=== PATIENT | female | born 1985 | race Caucasian/White ===

== ENCOUNTER 2017-01-10 19:05 | Emergency (ER) | payer OTHER ==
[2017-01-10 19:11] VITALS: BP 112/66; BMI 26.9
[2017-01-10 20:59] VITALS: PULSE 68; TEMP 98.6
[2017-01-10 21:29] LABS: URINE APPEARANCE CLEAR; URINE BILIRUBIN NEGATIVE (NEGATIVE); URINE BLOOD NEGATIVE (NEGATIVE); URINE COLOR RED; URINE GLUCOSE (UA) NEGATIVE (NEGATIVE); URINE KETONE NEGATIVE (NEGATIVE); URINE LEUK ESTERASE NEGATIVE (NEGATIVE); URINE NITRITE NEGATIVE (NEGATIVE); URINE PROTEIN NEGATIVE (NEGATIVE); URINE UROBILINOGEN NEGATIVE E.U./dl (0.2-1.0)
== END 2017-01-10 21:50 | disposition home or self-care (01) ==
LOC: JER 19:05
DX: O26.893 Other specified pregnancy related conditions, third trimester (principal); R10.30 Lower abdominal pain, unspecified; Z3A.31 31 weeks gestation of pregnancy
CPT/HCPCS: 81003; 87086; 99281-25

== ENCOUNTER 2017-03-20 17:10 | Inpatient (IN) | payer OTHER ==
[2017-03-20 18:23] VITALS: BMI 30.1
[2017-03-20] MEDS ORDERED: BUTORPHANOL TARTRATE 1 MG/ML VIAL IVPB ONE (18:39)
[2017-03-20] MEDS ORDERED: PROMETHAZINE HCL 25 MG/1 ML VIAL IVPUSH ONE (18:39)
[2017-03-20] MEDS ORDERED: SODIUM PHOSPHATE/NA BIPHOS 133 ML ENEMA PR ONE (18:42)
[2017-03-20] MEDS ORDERED: DINOPROSTONE 10 MG VAGINAL SUPPOSITORY VG ONE (18:43)
[2017-03-20] MEDS ORDERED: DEXTROSE 5%-LACTATED RINGERS 1,000 ML IV SCH (18:45)
--- NOTE | 2017-03-20 18:49 | HP ---
Past Medical History - Primary Care Physician PCP:: Yuki Khalil - Admission Chief Complaint: 32 yrs , h/f , 03/12/17 edc by dates & sono by M 41.4/7 weeks postterm pregn requests for induction of labor . History of Present Illness: PNC at , [facility] ., wt gain 25 lbs work Up O pos, Rpr nr, Hbsag neg, Rubella pos, Quantiferon neg, , Hiv neg,! hr GTT 103,Quantiferon neg, , Sickle neg, Pap 10/19/16 NILM, gc/ct neg Gbs neg ., consult with VICKIE Quad screen neg, 12/23/16 sono 28.4/7 weeks GA by sono & dates compatible, The Best EDC assigned by [facility] was 03/12/17 f/u sono on 01/22/17 , 32.4/7 weeks .vx post placenta f/u sono 03/16/17 40.4/7 weeks,Vx, EFW 86%tile (3863 gm = 8'8" ) XIN 12.09, Bpp8/ 8 She was monitored by NST in the clinic for post term Pt has signed BTL papers Ante History Source: Patient, Medical Record Limitations to Obtaining History: No Limitations - Past Medical History HOIST MECHANIC: No: Migraine, Seizure Cardiovascular: No: HTN, Murmur Pulmonary: No: Asthma, COPD Gastrointestinal: No: Constipation, Gastritis Hepatobiliary: No: Hepatitis B Renal/: No: UTI ...: 5 ...Para: 3 ...Term: 2 ...: 1 ...LMP: 06/05/16 ... Weeks Gestation by Dates: 41.4 ...EDC by Dates: 03/12/17 ...EDC by Sono: 03/12/17 (41.4 weeks ) Additional OB History: G1 08/18/2005 30 weeks 2'14" [facility] G2 2007 sp ab 1st trimester. G3 07/17/2009 40 weeks 6'10" [facility]. G4 11/28/2013 40 weeksNSVD 7' 9"[facility] Heme/Onc: No: Anemia, Sickle Cell Trait Infectious Disease: No: AIDS, HIV, STD's, Tuberculosis Psych: No: Addictions, Anxiety, Bipolar, Depression Endocrine: No: Diabetes Mellitus, Hypothyroidism - Past Surgical History Past Surgical History: Yes: None Hx Myomectomy: No Hx Transabdominal Cerclage: No - Smoking History Smoking history: Never smoked Have you smoked in the past 12 months: No - Alcohol/Substance Use Hx Alcohol Use: No History of Substance Use: reports: None - Social History History of Recent Travel: No Home Medications - Allergies Allergies/Adverse Reactions: Allergies Allergy/AdvReac Type Severity Reaction Status Date / Time No Known Allergies Allergy Verified 01/10/17 19:10 - Home Medications Home Medications: Ambulatory Orders Vitamins (Sjr) - 1 tab PO DAILY 11/24/13 Physical Exam - Maternity Vital Signs: Vital Signs Temperature 97.6 F 03/20/17 17:45 Pulse Rate 77 03/20/17 17:45 Respiratory Rate 18 03/20/17 17:45 Blood Pressure 106/64 03/20/17 17:45 O2 Sat by Pulse Oximetry (%) Constitutional: Yes: Well Nourished Eyes: Yes: WNL HENT: Yes: WNL, Normocephalic Neck: Yes: WNL Cardiovascular: Yes: WNL, Regular Rate and Rhythm Lungs: Clear to auscultation Breast(s): Yes: WNL - Abdominal Exam/OB Fundal Height: 40 Number of Fetuses: Single Presentation: Vertex Regularity: Irregular Intensity: Unaware Monitor Mode: External Heart Rate (range): 140-150 Heart Rate Location: [facility] Category: I Accelerations: Uniform Decelerations: None - Vaginal Exam/OB Vaginal Bleediing: No Dilatation (cm): FT Effacement (%): 40 Amniotic Membrane Status: Intact Presentation: Vertex/Position Station: -3 (-3/-4) - Physical Exam Musculoskeletal: Yes: WNL Extremities: Yes: WNL Edema: Yes Edema: LLE: Trace, RLE: Trace Integumentary: Yes: WNL Deep Tendon Reflex Grade: Normal +2 ...Motor Strength: WNL Psychiatric: Yes: WNL, Alert, Oriented - Labs Lab Results: Laboratory Tests 03/20/17 03/20/17 03/20/17 18:45 18:45 18:45 WBC 10.0 RBC 3.89 Hgb 12.1 Hct 34.2 MCV 88.0 Plt Count 170 Neutrophils % 71.0 Lymphocytes % 19.7 Monocytes % 7.2 Eosinophils % 1.7 INR 1.03 PTT (Actin FS) 27.8 Sodium 138 Potassium 4.2 Chloride 104 Carbon Dioxide 26 BUN 9 Creatinine 0.7 Random Glucose 81 Calcium 8.2 L Blood Type Antibody Screen 03/20/17 18:45 WBC RBC Hgb Hct MCV Plt Count Neutrophils % Lymphocytes % Monocytes % Eosinophils % INR PTT (Actin FS) Sodium Potassium Chloride Carbon Dioxide BUN Creatinine Random Glucose Calcium Blood Type O POSITIVE Antibody Screen Negative Problem List - Problems (1) Post term at 41 weeks gestation Code(s): O48.0 - POST-TERM Z3A.41 - 41 WEEKS GESTATION OF (2) Elective induction of labor planned Code(s): JGA5277 - Assessment/Plan 32 yrs G5 P 2113 , 41 weeks iup , post term pregn by dates & sono requests for induction of labor GBS neg pt was explained in details r/b/aof expectant management ( wait for spontaneous onset LP until another 4-5 days, monitor alt day by NST & BPP again at 42 weeks ( risk of cord accident , abruptio ), versus Induction of labor with cervidil today ,possbility of c/section due to unfavorable cervix notified Pt prefers to be induced Plan cervidil insertion done at 7.15 PM trial vaginal delivery
[2017-03-20 19:15] LABS: BASOPHIL 0.4 % (0-2.0); EOSINOPHIL 1.7 % (0-4.5); MCHC 35.3 g/dl (32.0-36.0); MEAN PLT VOLUME 9.4 fl (7.5-11.1); PLATELET COUNT 170 K/MM3 (134-434); RDW 14.1 % (11.6-15.6)
[2017-03-20 19:35] LABS: ANION GAP 8 (8-16); CALCIUM 8.2 mg/dL (8.5-10.1); CO2 26 mmol/L (21-32); CREATININE 0.7 mg/dL (0.55-1.02); GLUCOSE,RANDOM 81 mg/dL (74-106)
[2017-03-20 19:40] LABS: INR 1.03 (0.82-1.09); PROTHROMBIN TIME (PATIENT) 11.3 SEC (9.98-11.88)
[2017-03-20 19:43] LABS: ACTIVATED PTT 27.8 SECONDS (26.9-34.4)
--- NOTE | 2017-03-21 02:22 | PN ---
Progress Note, Labor Vaginal Exam #1 Labor Exam Date: 03/21/17 Labor Exam Time: 01:00 Heart Rate (range): 140 Dilatation: 6 Effacement (%): 100 Amniotic Membrane Status: Intact Presentation: Vertex/Position Station: -3 Remarks: uc q 2 min , FHR cat-1 1.10 am stadol 2 mg + phenrgan 25 mg iv stat given Selected Entries 03/21/17 00:00 Temperature 98.3 F Pulse Rate 63 Blood Pressure 123/79 Vaginal Exam #2 Labor Exam Date: 03/21/17 Labor Exam Time: 01:40 Heart Rate (range): 140 Dilatation: 8 Effacement (%): 100 Amniotic Membrane Status: Ruptured (copious amount clear fluid .) Presentation: Vertex/Position Station: -2 Remarks: 1.35 AM excessive blood show with blood clot noted , cervidil expelled spontaneously variable to 100 cat-2 , position changed 1.40 Hr Fhr cat-1 150 1.48 Hr recurrent variable decel FHr cat-2 1. Vaginal Exam #3 Labor Exam Date: 03/21/17 Labor Exam Time: 02:35 Heart Rate (range): 160 Dilatation: 10 Effacement (%): 100 Amniotic Membrane Status: Ruptured Presentation: Vertex/Position Station: 0 (0/+!) Remarks: fhr cat-2 UC 2 min pt has urge to push , encouraged to push
[2017-03-21] MEDS ORDERED: BENZOCAINE 20% 57 GM BOTTLE TP PRN (03:10)
[2017-03-21] MEDS ORDERED: IBUPROFEN 600 MG TABLET (FP) PO PRN (03:10)
[2017-03-21] MEDS ORDERED: WITCH HAZEL 50% (TUCKS) 40 PAD/JAR PAD TP PRN (03:10)
[2017-03-21] MEDS ORDERED: ACETAMINOPHEN 325 MG TABLET (FP) PO PRN (03:10)
[2017-03-21] MEDS ORDERED: BISACODYL 10 MG SUPP.RECT RC PRN (03:10)
[2017-03-21] MEDS ORDERED: oxyCODONE HCL 5 MG TABLET PO PRN (03:10)
[2017-03-21] MEDS ORDERED: BENZOCAINE 28 GM HEMORRHOIDAL OINTMENT TP PRN (03:10)
[2017-03-21] MEDS ORDERED: METHYLERGONOVINE MALEATE 0.2 MG/1 ML AMP IM PRN (03:10)
[2017-03-21] MEDS ORDERED: D5W-LR W/ 20 UNITS OXYTOCIN 1,000 ML IV SCH (03:15)
--- NOTE | 2017-03-21 03:24 | PN ---
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 Gbs neg PNC at [address] [place] [address] Cervidil inserted on 03/20/17 Iv Stadol 2 mg + Phenrgan 25 mg Iv for labor analgesia was given
[2017-03-21 03:30] LABS: VENOUS PH 7.33 (7.32-7.42)
[2017-03-21] MEDS: FERROUS SO4 325 MG TABLET (FP) PO SCH ×2 (07:52→17:41)
[2017-03-21] MEDS: PRENATAL VITAMINS W/ FOLIC ACID TABLET (FP) PO SCH (09:37)
[2017-03-22 06:51] LABS: BASOPHIL 0.5 % (0-2.0); EOSINOPHIL 1.7 % (0-4.5); MCH 30.3 pg (25.7-33.7); MEAN PLT VOLUME 9.1 fl (7.5-11.1); NEUTROPHILS 69.9 % (42.8-82.8); PLATELET COUNT 160 K/MM3 (134-434); RDW 13.8 % (11.6-15.6); WHITE BLOOD COUNT 14.4 K/mm3 (4.0-10.0)
[2017-03-22] MEDS: PRENATAL VITAMINS W/ FOLIC ACID TABLET (FP) PO SCH (09:21)
[2017-03-22] MEDS: FERROUS SO4 325 MG TABLET (FP) PO SCH ×2 (09:21→17:05)
--- NOTE | 2017-03-22 09:38 | PN ---
Post Progress Note - Subjective Subjective: 32 yo Para 4, status post vaginal delivery, seen and evaluated. Doing well, no complaints. Post Day: 1 Type of Delivery: Vital Signs: Vital Signs Temperature 97.6 F 03/21/17 22:00 Pulse Rate 55 L 03/21/17 22:00 Respiratory Rate 20 03/21/17 22:00 Blood Pressure 108/63 03/21/17 22:00 O2 Sat by Pulse Oximetry (%) 99 03/21/17 03:30 Breast Exam: Yes: Soft Uterus: Yes: Fundus Firm Abdomen/GI: Yes: Abdomen soft, Tolerating PO Lochia: Yes: Rubra Lochia, amount: Moderate Perineum: Yes: Intact Activity: Ambulating - Labs Labs: CBC WBC 14.4 K/mm3 (4.0-10.0) H D 03/22/17 06:30 RBC 3.82 M/mm3 (3.60-5.2) 03/22/17 06:30 Hgb 11.6 GM/dL (10.7-15.3) 03/22/17 06:30 Hct 34.0 % (32.4-45.2) 03/22/17 06:30 MCV 89.0 fl (80-96) 03/22/17 06:30 MCH 30.3 pg (25.7-33.7) 03/22/17 06:30 MCHC 34.0 g/dl (32.0-36.0) 03/22/17 06:30 RDW 13.8 % (11.6-15.6) 03/22/17 06:30 Plt Count 160 K/MM3 (134-434) 03/22/17 06:30 MPV 9.1 fl (7.5-11.1) 03/22/17 06:30 Neutrophils % 69.9 % (42.8-82.8) 03/22/17 06:30 Lymphocytes % 20.2 % (8-40) 03/22/17 06:30 Monocytes % 7.7 % (3.8-10.2) 03/22/17 06:30 Eosinophils % 1.7 % (0-4.5) 03/22/17 06:30 Basophils % 0.5 % (0-2.0) 03/22/17 06:30 Problem List - Problems (1) Status post normal vaginal delivery Code(s): [id number] - Assessment/Plan Status post normal vaginal delivery Stable Continue routine care
[2017-03-22] MEDS ORDERED: SENNOSIDES/DOCUSATE COMBO (SENNA PLUS) TABLET (UD) PO PRN (22:00)
--- NOTE | 2017-03-23 08:18 | PN ---
Progress Note (short form) - Note Progress Note: ppd 2, no c/o voids ok no excess vaginal bleeding. CBC, BMP 03/22/17 06:30 03/20/17 18:45 Last Vital Signs Temp Pulse Resp BP Pulse Ox 98.7 F 58 L 20 116/76 99 03/22/17 22:00 03/22/17 22:00 03/22/17 22:00 03/22/17 22:00 03/21/17 03:30 abdomen soft, uterus firm, non tender lochia mild, no calf tenderness plan d/c home , rtc 4 weeks
[2017-03-23 08:23] VITALS: BP 113/62; PULSE 53; TEMP 98.1
[2017-03-23] MEDS: PRENATAL VITAMINS W/ FOLIC ACID TABLET (FP) PO SCH (09:29)
[2017-03-23] MEDS: FERROUS SO4 325 MG TABLET (FP) PO SCH (09:29)
--- NOTE | 2017-03-23 10:43 | DS ---
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 BF) Musculoskeletal: Yes: WNL Extremities: Yes: WNL. No: Calf Tenderness Edema: Yes Integumentary: Yes: WNL Neurological: Yes: WNL ...Motor Strength: WNL Psychiatric: Yes: WNL, Alert, Oriented Labs: CBC, BMP 03/22/17 06:30 03/20/17 18:45 Delivery - Delivery Vaginal Delivery: No Problems, Spontaneous (cord around nexk x1 , released before delivery of ant shoulder) Type of Anesthesia: None Episiotomy/Laceration: None EBL (cc): 400 (st cath, 200 ml angelika color urine ) Delivery, Single - Stages of Labor Date 1st Stage Initiatied: 03/21/17 Time 1st Stage Initiated: 00:00 Date 2nd Stage Initiated: 03/21/17 Time 2nd Stage Initiated: 02:35 Date of Delivery: 03/21/17 Time of Delivery: 02:53 Time Placenta Delivered: 03:05 Placenta: Yes: Spontaneous, Uterine Exploration - Condition of Infant Synchro Assembler/[place] Present: No Gender: Male Weight: 7 lb 7 oz Position: Left, OA Total Hours ROM (Hrs/Mins): 1hr 25 min - 1 Minute Total Score: 9 5 Minutes Total Score: 9 - [place] Feeding Plan Initial Plan: Exclusive throughout hospitalization Remarks - Remarks Remarks: 32 yrs , h/f Post term 41.2 weeks gestation admitted for induction of labor . Gbs neg PNC at [address] [place] [address] Cervidil inserted on 03/20/17 Iv Stadol 2 mg + Phenrgan 25 mg Iv for labor analgesia was given pp course uneventful discharge today 03/23/17 Discharge Summary Reason For Visit: INDUCTION OF LABOR Current Active Problems Elective induction of labor planned (Acute) Post term at 41 weeks gestation (Acute) Status post normal vaginal delivery (Acute) Condition: Stable - Instructions Diet, Activity, Other Instructions: Discharge Instructions * Out of Bed * * Regular Diet * Judi Care * Avoid sex for 6 weeks * RTC 6 weeks If you experience excessive bleeding or fever over 101 degrees, call doctor, the clinic or go to the Emergency Room. call [facility] for appointment in 6 weeks. [phone] Referrals: Yuki Khalil MD [Staff Physician] - Disposition: HOME - Home Medications Comprehensive Discharge Medication List: Ambulatory Orders Vitamins (Sjr) - 1 tab PO DAILY 11/24/13 Acetaminophen [Tylenol .Regular Strength -] 650 mg PO Q3H PRN #0 tablet Ibuprofen [Motrin -] 200 mg PO Q4H PRN #0 tablet 03/22/17 Vitamins (Sjr) - 1 tab PO DAILY tablet 03/22/17 Ibuprofen [Motrin -] 600 mg PO QID #28 tablet 03/23/17
== END 2017-03-23 12:30 | disposition home or self-care (01) | DRG 560 ==
LOC: JLDR 17:10 → J3W 03-21 05:06
PROVIDERS: ADMIT Obstetrics & Gynecology; ATTEND Obstetrics & Gynecology
PROC: 3E0P7GC Introduction of Other Therapeutic Substance into Female Reproductive, Via Natural or Artificial Opening (ICD-10-PCS; 2017-03-20)
PROC: 10E0XZZ Delivery of Products of Conception, External Approach (ICD-10-PCS; principal; 2017-03-21)
DX: O48.0 Post-term pregnancy (principal); Z3A.41 41 weeks gestation of pregnancy; O69.81X0 Labor and delivery complicated by cord around neck, without compression, not applicable or unspecified; Z37.0 Single live birth
CPT/HCPCS: 36415; 59409; 80048; 82803; 85025; 85610; 85730; 86593; 86850; 86900; 86901

== ENCOUNTER 2017-06-07 05:02 | Day surgery (SDC) | payer OTHER ==
[2017-06-05 19:05] VITALS: BMI 26.9
--- NOTE | 2017-06-07 17:01 | HP ---
Past Medical History - Primary Care Physician PCP:: Stanley Billings - Admission Chief Complaint: admission for sterlization History of Present Illness: 32 yo f requesting sterlization, risks discussed , admitted for laparoscopic bilateral tubal cauterization History Source: Patient Limitations to Obtaining History: No Limitations - Past Surgical History Past Surgical History: Yes: None Hx Myomectomy: No Hx Transabdominal Cerclage: No - Smoking History Smoking history: Never smoked Have you smoked in the past 12 months: No - Alcohol/Substance Use Hx Alcohol Use: No History of Substance Use: reports: None - Social History History of Recent Travel: No Home Medications - Allergies Allergies/Adverse Reactions: Allergies Allergy/AdvReac Type Severity Reaction Status Date / Time No Known Allergies Allergy Verified 06/07/17 15:53 - Home Medications Home Medications: Ambulatory Orders Ibuprofen [Motrin -] 600 mg PO QID #28 tablet 06/07/17 Vits #93/Iron Fum/FA [ Formula Tablet] 1 each PO DAILY Review of Systems - Review of Systems Constitutional: reports: No Symptoms Eyes: reports: No Symptoms HENT: reports: No Symptoms Neck: reports: No Symptoms Cardiovascular: reports: No Symptoms Respiratory: reports: No Symptoms Gastrointestinal: reports: No Symptoms Genitourinary: reports: No Symptoms Breasts: reports: No Symptoms Reported Musculoskeletal: reports: No Symptoms Integumentary: reports: No Symptoms Neurological: reports: No Symptoms Hematology/Lymphatic: reports: No Symptoms Psychiatric: reports: No Symptoms 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 Vital Signs: Vital Signs Temperature 97.7 F 06/07/17 15:50 Pulse Rate 55 L 06/07/17 15:50 Respiratory Rate 20 06/07/17 15:50 Blood Pressure 104/69 06/07/17 15:50 O2 Sat by Pulse Oximetry (%) 99 06/07/17 15:49 Constitutional: Yes: Well Nourished, No Distress, Calm Eyes: Yes: WNL, Conjunctiva Clear, EOM Intact HENT: Yes: WNL, Atraumatic, Normocephalic Neck: Yes: WNL, Supple, Trachea Midline Cardiovascular: Yes: WNL, Regular Rate and Rhythm Respiratory: Yes: WNL, Regular, CTA Bilaterally Gastrointestinal: Yes: WNL ...Rectal Exam: Yes: WNL Renal/: Yes: WNL Pelvis: Yes: WNL External Genitalia: Yes: Normal Vaginal Exam: Yes: Normal Cervix: Yes: Normal Uterus: Yes: Normal Adnexa: Not Palpable: Left, Right Breast(s): Yes: WNL Musculoskeletal: Yes: WNL Extremities: Yes: WNL Integumentary: Yes: WNL Neurological: Yes: WNL, Alert, Oriented ...Motor Strength: WNL Psychiatric: Yes: WNL, Alert, Oriented Problem List - Problem (1) Admission for sterilization Code(s): Z30.2 - ENCOUNTER FOR STERILIZATION Assessment/Plan laparoscopic BTL
[2017-06-07] MEDS ORDERED: MIDAZOLAM HCL 2 MG/2 ML SINGLE DOSE VIAL ONE (17:02)
[2017-06-07] MEDS ORDERED: ceFAZolin SODIUM 1 GM VIAL ONE (17:20)
[2017-06-07] MEDS ORDERED: DEXAMETHASONE SOD PHOSPHATE 4 MG/1 ML VIAL ONE (17:20)
[2017-06-07] MEDS ORDERED: KETOROLAC TROMETHAMINE 30 MG/1 ML VIAL ONE (17:37)
[2017-06-07] MEDS ORDERED: GLYCOPYRROLATE 0.2 MG/1 ML VIAL ONE ×2 (17:37→17:46)
[2017-06-07] MEDS ORDERED: NEOSTIGMINE METHYLSULFATE 0.5 MG/ML - 10 ML MDV ONE (17:37)
[2017-06-07] MEDS ORDERED: ONDANSETRON 4 MG/2 ML VIAL IVPUSH PRN ×2 (18:09→18:18)
[2017-06-07] MEDS ORDERED: oxyCODONE HCL 5 MG TABLET PO PRN ×2 (18:09→18:18)
[2017-06-07] MEDS ORDERED: LACTATED RINGERS SOLUTION 1,000 ML IV SCH (18:15)
[2017-06-07] MEDS ORDERED: IBUPROFEN 600 MG TABLET (FP) PO PRN (18:18)
[2017-06-07] MEDS ORDERED: IBUPROFEN 800 MG/8 ML IJ IVPB PRN (18:18)
[2017-06-07] MEDS ORDERED: ELECTROLYTE-148 SOLN 1,000 ML IV SCH (18:30)
[2017-06-07 23:00] VITALS: BP 117/77; PULSE 70; TEMP 98.4
--- NOTE | 2017-06-08 07:13 | OP ---
DATE OF OPERATION: 06/07/2017 PREOPERATIVE DIAGNOSIS: Voluntary sterilization. POSTOPERATIVE DIAGNOSIS: Voluntary sterilization. PROCEDURE: Laparoscopic bilateral tubal fulguration. SURGEON: Stanley Billings MD ANESTHESIA: General. ESTIMATED BLOOD LOSS: 10 mL. OPERATION: Patient was taken to the operating room under adequate general anesthesia in dorsal lithotomy position. Examination under anesthesia revealed external genitalia to be normal. Vagina was normal. Cervix was clean, no lesion. Uterus was normal size, anteverted. Adnexa, no masses were palpable. Then, with a weighted speculum in the vagina, anterior lip of the cervix was grasped with a single-tooth tenaculum. Uterine cavity was sounded to 8 cm. Then, Hulka was introduced into the uterine cavity for manipulation. Then, Peralta was inserted. Then, patient was placed in dorsal lithotomy position for a pelviscopy. A small infraumbilical skin incision was made with the knife, and 5-mm trocar was introduced under direct vision into the abdominal cavity. Then, scope was introduced, and under direct vision, a 5-mm trocar was introduced through the suprapubic area. Upper abdomen was checked, was normal. Liver and diaphragm were normal. The bowels were normal. Pelvic cavity, no pelvic adhesion. Uterus appeared to be normal. Both tubes and ovaries were normal. No cul-de-sac adhesions or fluid. Then, right tube was identified. The fimbriated end was visualized. Right tube was cauterized in 3 portions 2 cm apart. The same procedure repeated for opposite tube. Visualization of both tubes showed no bleeding, adequate cauterization, and abdomen was emptied of all the gas with instruments withdrawn. Suprapubic and infraumbilical skin incision was closed with 3-0 Vicryl interrupted suture, and then, the skin was closed with Dermabond. Patient tolerated the procedure well, left the OR in good condition. Manas [id number]
== END 2017-06-07 23:10 | disposition home or self-care (01) ==
LOC: JASU-SURG 05:02 → J3W 19:50 → JASU-SURG 23:10
PROVIDERS: ATTEND Obstetrics & Gynecology
PROC: 0U574ZZ Destruction of Bilateral Fallopian Tubes, Percutaneous Endoscopic Approach (ICD-10-PCS; principal; 2017-06-07 17:00)
DX: Z30.2 Encounter for sterilization (principal)
CPT/HCPCS: 84703; 94760

== ENCOUNTER 2017-06-14 00:15 | Emergency (ER) | payer SELFPAY ==
[2017-06-14 00:34] VITALS: BP 108/79; PULSE 98; TEMP 99.9; BMI 23.3
--- NOTE | 2017-06-14 00:44 | PDOC ---
History of Present Illness - General Chief Complaint: SIRS, Suspected/Possible Stated Complaint: FEVER/ CHILLS/POST SURGERY Time Seen by Provider: 06/14/17 00:43 History Source: Patient - History of Present Illness Initial Comments: 06/14/17 01:04 Patient is a 32 y.o. female who presents to our ED today c/o of 1 day h/o of R sided constant, cramping, non-radiating abdominal pain. Patient is 7 days post op from a tubal ligation. Patient denies any fevers, chills, constipation, diarrhea but does endorse nausea and decreased PO intake over the last 24 hours. NKDA Surgical: tubal ligation Social: denies cigarettes, denies alcohol, denies recreational drugs PMD: none; mirror machine feeder: Dr. Kapoor Past History - Past Medical History Allergies/Adverse Reactions: Allergies Allergy/AdvReac Type Severity Reaction Status Date / Time No Known Allergies Allergy Verified 06/14/17 00:32 Home Medications: Ambulatory Orders Vits #93/Iron Fum/FA [ Formula Tablet] 1 each PO DAILY Sulfamethoxazole/Trimethoprim [Bactrim Ds -] 1 tab PO BID #14 tablet 06/14/17 Asthma: No Cancer: No Cardiac Disorders: No Diabetes: No HTN: No Seizures: No Thyroid Disease: No - Suicide/Smoking/Psychosocial Hx Smoking History: Never smoked Have you smoked in the past 12 months: No Information on smoking cessation initiated: No Hx Alcohol Use: No Drug/Substance Use Hx: No Hx Substance Use Treatment: No Review of Systems - Review of Systems Constitutional: No: Chills, Fever Respiratory: No: Shortness of Breath Cardiac (ROS): No: Chest Pain ABD/GI: Yes: Nausea, Poor Appetite, Abdominal cramping. No: Constipated, Diarrhea, Vomiting : No: Burning, Dysuria All Other Systems: Reviewed and Negative *Physical Exam - Vital Signs Last Vital Signs Temp Pulse Resp BP Pulse Ox 99.9 F H 98 H 20 108/79 99 06/14/17 00:33 06/14/17 00:33 06/14/17 00:33 06/14/17 00:33 06/14/17 00:33 - Physical Exam General Appearance: Yes: Nourished, Appropriately Dressed Neck: positive: Trachea midline, Supple Respiratory/Chest: positive: Lungs Clear Cardiovascular: positive: S1, S2 Gastrointestinal/Abdominal: positive: Tender (RUQ, RLQ tenderness, (-) Andrade's sign), Soft, Other (infraumbilical and suprapubic 2 cm incisions C/D/I with no appreciable erythema or warmth). negative: Pulsatile Mass, Protuberent, Distended, Guarding, Rebound Musculoskeletal: negative: CVA Tenderness (R), CVA Tenderness (L) Extremity: positive: Normal Capillary Refill, Normal Inspection Neurologic: positive: Fully Oriented, Alert ED Treatment Course - LABORATORY CBC & Chemistry Diagram: 06/14/17 01:16 06/14/17 01:16 Medical Decision Making - Medical Decision Making 06/14/17 05:17 Patient is a 32 y.o. female who presents with a 1 day h/o of abdominal pain. At presentation patient is SIRS 2/4 (tachycardia + mildly febrile) Of note, patient is 7 days post op from a tubal ligation. Patient is afebrile and incision sites are C/D/I. Patient's pain resolves with IV Tylenol and IV NS. Patient's UA significant for 154 WBC. Patient given OTD of Ceftriaxone and prescription for Bactrim. Patient discharged home with instruction to f/u with mirror machine feeder (patient's PCP is mirror machine feeder) in the next 48 hours. *DC/Admit/Observation/Transfer Diagnosis at time of Disposition: UTI (urinary tract infection) - Discharge Dispostion Disposition: HOME Condition at time of disposition: Good Admit: No - Prescriptions Prescriptions: Sulfamethoxazole/Trimethoprim [Bactrim Ds -] 1 tab PO BID #14 tablet - Referrals Referrals: Stanley Billings MD [Primary Care Provider] - - Patient Instructions Printed Discharge Instructions: Urinary Tract Infection, DI for Urinary Tract Infection (UTI) Additional Instructions: Please follow up with Dr. Kapoor in the next 48 hours. Please return to the Emergency Department should you experience fevers, chills or any worsening or concerning symptoms. - Post Discharge Activity
[2017-06-14 01:37] LABS: VENOUS BLOOD GAS HCO3 23.5 meq/L (19-25); VENOUS PH 7.36 (7.32-7.42)
[2017-06-14 01:40] LABS: BASOPHIL 0.6 % (0-2.0); EOSINOPHIL 1.1 % (0-4.5); MCH 29.3 pg (25.7-33.7); MCHC 34.3 g/dl (32.0-36.0); MEAN CELL VOLUME 85.4 fl (80-96); MEAN PLT VOLUME 8.6 fl (7.5-11.1); NEUTROPHILS 68.7 % (42.8-82.8); PLATELET COUNT 310 K/MM3 (134-434); WHITE BLOOD COUNT 14.9 K/mm3 (4.0-10.0)
[2017-06-14 01:52] LABS: URINE APPEARANCE SLCLOUDY; URINE BILIRUBIN NEGATIVE (NEGATIVE); URINE BLOOD 1+ (NEGATIVE); URINE COLOR LTYELLOW; URINE GLUCOSE (UA) NEGATIVE (NEGATIVE); URINE KETONE NEGATIVE (NEGATIVE); URINE NITRITE NEGATIVE (NEGATIVE); URINE PROTEIN NEGATIVE (NEGATIVE); URINE UROBILINOGEN NEGATIVE mg/dL (0.2-1.0)
[2017-06-14 01:53] LABS: INR 1.3 (0.82-1.09); PROTHROMBIN TIME (PATIENT) 14.7 SEC (9.98-11.88)
[2017-06-14 01:55] LABS: ACTIVATED PTT 34.9 SECONDS (26.9-34.4)
[2017-06-14 02:00] LABS: URINE LEUK ESTERASE 3+ (NEGATIVE)
[2017-06-14 02:03] LABS: ANION GAP 10 (8-16); BILIRUBIN,TOTAL 0.8 mg/dL (0.2-1.0); CALCIUM 8.6 mg/dL (8.5-10.1); CO2 27 mmol/L (21-32); CREATININE 0.9 mg/dL (0.55-1.02); GLUCOSE,RANDOM 95 mg/dL (74-106); SGOT/AST 18 U/L (15-37); SGPT/ALT 29 U/L (12-78); TOT PROT 7.1 g/dl (6.4-8.2)
[2017-06-14 02:06] LABS: ALK PHOS 115 U/L (45-117); CPK 52 IU/L (26-192); TROPONIN I < 0.02 ng/ml (0.00-0.05)
[2017-06-14 02:16] LABS: URINE BACTERIA FEW /hpf (NONE SEEN); URINE HYALINE CAST 1 /lpf; URINE MUCUS RARE; URINE RBC 4 /hpf (0-3); URINE WBC 154 /hpf (3-5)
--- NOTE | 2017-06-14 02:21 | PDOC ---
Attending Attestation - HPI HPI: 32 year old female with PMHx of tubal ligation [address] Kapoor, who presents to the emergency room complaining of 1 day of right sided abdominal cramping that is nonradiating, low grade fever, and decreased appetite. <Sara Mcdermott - Last Filed: 06/14/17 02:59> - Resident Resident Name: MargaKendra combs - ED Attending Attestation I have performed the following: I have examined & evaluated the patient, The case was reviewed & discussed with the resident, I agree w/resident's findings & plan, Exceptions are as noted - HPI HPI: 06/14/17 02:55 - Physicial Exam PE: 06/14/17 19:46 *Physical Exam General Appearance: Yes: Appropriately Dressed. No: Apparent Distress, Intoxicated HEENT: positive: EOMI, VIVIAN, Normal ENT Inspection, Normal Voice, TMs Normal, Pharynx Normal. negative: Pale Conjunctivae, Photophobia, Scleral Icterus (R), Scleral Icterus (L) Neck: positive: Trachea midline, Normal Thyroid, Supple. negative: Tender, Rigid, Carotid bruit, Stridor, Lymphadenopathy (R), Lymphadenopathy (L), Thyromegaly Respiratory/Chest: positive: Lungs Clear, Normal Breath Sounds. negative: Chest Tender, Respiratory Distress, Accessory Muscle Use, Labored Respiration, RES, Crackles, Rales, Rhonchi, Stridor, Wheezing, Dullness Cardiovascular: positive: Regular Rhythm, Regular Rate, S1, S2. negative: Edema , JVD, Murmur, Bradycardia, Tachycardia Vascular Pulses: Dorsalis-Pedis (R): 2+, Doralis-Pedis (L): 2+ Gastrointestinal/Abdominal: positive: Normal Bowel Sounds, Flat, Soft. negative : Tender, Organomegaly, Pulsatile Mass, Increased Bowel Sounds, Decreased BS, Distended, Guarding, Rebound, Hernia, Hepatomegaly, Spleenomegaly Lymphatic: negative: Adenopathy, Tenderness Musculoskeletal: positive: Normal Inspection. negative: CVA Tenderness, Decreased Range of Motion Extremity: positive: Normal Capillary Refill, Normal Inspection, Normal Range of Motion, Pelvis Stable. negative: Tender, Pedal Edema, Swelling, Erythema Integumentary: positive: Normal Color, Dry, Warm. negative: Cyanotic, Erythema , Jaundice, Rash Neurologic: positive: remote sensing advisor II-XII NML intact, Fully Oriented, Alert, Normal Mood/ Affect, Motor Strength 5/5. negative: EOM Palsy, Facial Droop, Sensory Deficit - Medical Decision Making 06/14/17 19:47 Pt treated and released. <Jerry Joshi - Last Filed: 06/14/17 19:47>
[2017-06-14] MEDS ORDERED: ACETAMINOPHEN 1000 MG/100 ML VIAL (NON FORMULARY) IVPB ONE (02:53)
[2017-06-14] MEDS ORDERED: CEFTRIAXONE 1 GM in DEXTROSE 5%-WATER - 50 ML IVPB ONE (02:55)
[2017-06-14] MEDS ORDERED: CEFTRIAXONE 1 GM/50 ML BAG ONE (02:58)
[2017-06-14] MEDS ORDERED: ACETAMINOPHEN INJECTION 100 ML IVPB ONE (02:58)
--- NOTE | 2017-06-14 11:33 | EKG ---
Test Reason : Blood Pressure : / mmHG Vent. Rate : 089 BPM Atrial Rate : 089 BPM P-R Int : 150 ms QRS Dur : 080 ms QT Int : 348 ms P-R-T Axes : 069 048 009 degrees QTc Int : 423 ms NORMAL SINUS RHYTHM POSSIBLE LEFT ATRIAL ENLARGEMENT BORDERLINE ECG NO PREVIOUS ECGS AVAILABLE Confirmed by IVANA FLOYD, GENE ([id number]) on 06/14/2017 11:33:10 AM Referred By: Confirmed By:GENE HEATH MD
[2017-06-14 12:31] LABS: URINE LEUK ESTERASE 1+ (NEGATIVE)
== END 2017-06-14 04:12 | disposition home or self-care (01) ==
LOC: JER 00:15
PROC: 3E03329 Introduction of Other Anti-infective into Peripheral Vein, Percutaneous Approach (ICD-10-PCS; principal; 2017-06-14)
PROC: 3E033NZ Introduction of Analgesics, Hypnotics, Sedatives into Peripheral Vein, Percutaneous Approach (ICD-10-PCS; 2017-06-14)
DX: N39.0 Urinary tract infection, site not specified (principal); Z98.890 Other specified postprocedural states
CPT/HCPCS: 36415; 71010-TC; 80053; 81003; 81015; 82550; 82803; 83605; 84484; 84703; 85025; 85610; 85730; 86850; 86900; 86901; 87040; 87086; 93005; 93010; 99284-25

== ENCOUNTER 2020-07-07 22:27 | Emergency (ER) | payer OTHER ==
[2020-07-07 22:33] VITALS: BMI 25.0
--- NOTE | 2020-07-07 23:11 | PDOC ---
History of Present Illness - General Chief Complaint: Pain Stated Complaint: R SIDE ABDOMINAL PAIN Time Seen by Provider: 07/07/20 23:10 - History of Present Illness Initial Comments: 07/07/20 23:10 HPI: 35 y/o F with hx of tubal ligation presenting with right sided abdominal pain that has been constant for the past 6 hours. She states earlier this morning she had an intermittent right flank discomfort that has improved, however she now has constant right lower abdominal pain that is 8/10 and sharp. She has never had pain like this before and denies any triggers; pain is worsened on ambulation and has not been improved with anything. She also reports nausea and 1 episode of yellow emesis. Also reports chills, but no fever; +anorexia. Denies HURLEY, chest pain, SOB, dysuria, hematuria, vaginal bleeding, vaginal discharge. She is secually active with one partner and uses no contraception; no hx of STDs. RLQ ttp with mild guarding, negative McBurneys, negative Rosvings, negative psoas sign, negative obturator sign PMHx: as noted above ROS: as noted SHx: Denies tobacco use; no alcohol use; no rec drugs Allergies: NKDA ROS: GENERAL/CONSTITUTIONAL: No fever or chills. No weakness. HEAD, EYES, EARS, NOSE AND THROAT: No change in vision. No ear pain or discharge. No sore throat. CARDIOVASCULAR: No chest pain or shortness of breath RESPIRATORY: No cough, wheezing, or hemoptysis. GASTROINTESTINAL: +nausea, vomiting; no diarrhea or constipation. GENITOURINARY: No dysuria, frequency, or change in urination. MUSCULOSKELETAL: No joint or muscle swelling or pain. No neck or back pain. SKIN: No rash NEUROLOGIC: No headache, vertigo, loss of consciousness, or change in strength/sensation. ENDOCRINE: No increased thirst. No abnormal weight change HEMATOLOGIC/LYMPHATIC: No anemia, easy bleeding, or history of blood clots. ALLERGIC/IMMUNOLOGIC: No hives or skin allergy. PE: GENERAL: Awake, alert, and fully oriented, no acute distress HEAD: No signs of trauma, normocephalic, atraumatic EYES: EOMI, sclera anicteric, conjunctiva clear ENT: Auricles normal inspection, hearing grossly normal, nares patent, oropharynx clear without exudates. Moist mucosa NECK: Normal ROM, no lymphadenopathy LUNGS: No increased work of breathing, symmetrical chest rise, clear to auscultation bilaterally, no wheezes, crackles or rhonchi HEART: Regular rate, regular rhythm, normal S1 and S2, no murmur, peripheral pulses 2+ and equal bilaterally. ABDOMEN: Soft, nondistended, RLQ ttp with mild guarding, negative McBurneys, negative Rosvings, negative psoas sign, negative obturator sign, no rebound. No masses. No CVAT MUSCULOSKELETAL: FROM NEUROLOGICAL: Cranial nerves II through XII grossly intact. Normal speech, stable gait, no focal sensorimotor deficits SKIN: Warm, Dry, normal turgor, no rashes or lesions noted Past History - Medical History Allergies/Adverse Reactions: Allergies Allergy/AdvReac Type Severity Reaction Status Date / Time No Known Allergies Allergy Verified 07/07/20 22:33 Home Medications: Ambulatory Orders Vit 93/Iron Fum/Folic [ Formula Tablet] 1 each PO DAILY 06/07/17 Sulfamethoxazole/Trimethoprim [Bactrim Ds -] 1 tab PO BID #14 tablet 06/14/17 Asthma: No Cancer: No Cardiac Disorders: No COPD: No Diabetes: No HTN: No Seizures: No Thyroid Disease: No - Surgical History Abdominal Surgery: Yes (Tubal ligation ) - Reproductive History Is Patient Now?: No (#): 5 Para: 4 - Psycho-Social/Smoking History Smoking History: Never smoked Have you smoked in the past 12 months: No *Physical Exam - Vital Signs Last Vital Signs Temp Pulse Resp BP Pulse Ox 98.1 F 57 L 18 135/83 100 07/07/20 22:29 07/07/20 22:29 07/07/20 22:29 07/07/20 22:29 07/07/20 22:29 ED Treatment Course - LABORATORY CBC & Chemistry Diagram: 07/08/20 00:25 07/08/20 00:25 Medical Decision Making - Medical Decision Making 07/08/20 00:21 35 y/o F with hx of tubal ligation presenting with right sided abdominal pain that has been constant for the past 6 hours after intermittent right flank pain assocaited with nausea and emesis. VSS, AF. Pe notable for RLQ ttp with mild guarding, negative McBurneys, negative Rosvings, negative psoas sign, negative obturator sign -cbc, cmp, ua, upreg, tvus -ofirmev, ivf, zofran -reassess 07/08/20 03:57 [address] with large right ovarian cyst but no kidney stone or stone in ureter exam: normal appearing external genitalia, no discharge or bleeding in vaginal vault, normal appearing cervix, closed os with physiologix discharge, no CMT or adnexal tenderness will send GC/chlam with f/u call if positive toradol for pain DC with return pcxs and f/u Discharge - Discharge Information Problems reviewed: Yes Clinical Impression/Diagnosis: Flank pain Condition: Stable Disposition: HOME - Follow up/Referral - Patient Discharge Instructions Patient Printed Discharge Instructions: DI for Flank Pain Additional Instructions: Additional Instructions: Please return to the emergency department with any new or worsening symptoms or concerns including fever, worsening pain, inability to tolerate food, persistent vomiting. Please follow up with your primary care physician within 72 hours. Please followup with your Frit Mixer for further evaluation of the ovarian cysts. A referral has been provided if you need a new Well Drill Operator Helper Cable Tool doctor You may take tylenol and ibuprofen for pain control - Post Discharge Activity
--- OUTSIDE RECORDS SUMMARY | 2020-07-07 23:31 | XMS ---
:1985 Author Organization [facility] Support Name Relationship Address Phone UE Unavailable Unavailable Unavailable IVETH BERNAL [address] [place] [address] Re-disclosure Warning The records that you are about to access may contain information from federally- assisted alcohol or drug abuse programs. If such information is present, then the following federally mandated warning applies: This information has been disclosed to you from records protected by federal confidentiality rules (42 CFR part 2). The federal rules prohibit you from making any further disclosure of this information unless further disclosure is expressly permitted by the written consent of the person to whom it pertains or as otherwise permitted by 42 CFR part 2. A general authorization for the release of medical or other information is NOT sufficient for this purpose. The Federal rules restrict any use of the information to criminally investigate or prosecute any alcohol or drug abuse patient.The records that you are about to access may contain highly sensitive health information, the redisclosure of which is protected by Article 27-F of the [facility] Public Health law. If you continue you may haveaccess to information: Regarding HIV / AIDS; Provided by facilities licensed or operated by the [facility] Office of Mental Health; or Provided by the [facility] Office for People With Developmental Disabilities. If such information is present, then the following [facility] mandated warning applies: This information has been disclosed to you from confidential records which are protected by state law. State law prohibits you from making any further disclosure of this information without the specific written consent of the person to whom it pertains, or as otherwise permitted by law. Any unauthorized further disclosure in violation of state law may result in a fine or alf sentence or both. A general authorization for the release of medical or other information is NOT sufficient authorization for further disclosure. Family history Family Member Diagnosis Date of Diagnosis Age At Onset Description D hailee Source(s) Gender Female [facility]00 [facility]) Insurance Providers Payer name Policy type / Policy ID Covered Covered republican's Policy Plan Coverage type republican ID relationship to [place] Information cortez
--- NOTE | 2020-07-08 00:01 | PDOC ---
Attending Attestation - Resident Resident Name: Jaime Mike - ED Attending Attestation I have performed the following: I have examined & evaluated the patient, The case was reviewed & discussed with the resident, I agree w/resident's findings & plan - HPI HPI: 07/08/20 01:44 see resident hpi - Physicial Exam PE: 07/08/20 01:44 see resident exam - Medical Decision Making 07/08/20 01:44 35-year-old female with right flank pain yesterday now with pain in the right lower quadrant Pelvic ultrasound negative for significant acute findings Due to hematuria will proceed with CT scan abdomen and pelvis 07/08/20 05:29 CT scan negative for ureterolithiasis, appendix appears normal, possible ovarian cyst noted that were not appreciated on ultrasound On reevaluation patient is pain-free Will DC with outpatient PUBLIC HEALTH DIETITIAN follow-up Discharge - Discharge Information Problems reviewed: Yes Clinical Impression/Diagnosis: Flank pain, Ovarian cyst Condition: Stable Disposition: HOME - Follow up/Referral - Patient Discharge Instructions Patient Printed Discharge Instructions: DI for Flank Pain Additional Instructions: Additional Instructions: Please return to the emergency department with any new or worsening symptoms or concerns including fever, worsening pain, inability to tolerate food, persistent vomiting. Please follow up with your primary care physician within 72 hours. Please followup with your Racing Mechanic for further evaluation of the ovarian cysts. A referral has been provided if you need a new Chief Financial Officer doctor You may take tylenol and ibuprofen for pain control - Post Discharge Activity
[2020-07-08] MEDS ORDERED: ONDANSETRON 4 MG/2 ML VIAL IVPUSH ONE (00:07)
[2020-07-08] MEDS ORDERED: SODIUM CHLORIDE 1,000 ML IV STA (00:07)
[2020-07-08] MEDS ORDERED: ACETAMINOPHEN 500 MG TABLET (FP) PO ONE (00:07)
[2020-07-08] MEDS ORDERED: ACETAMINOPHEN 325 MG TABLET (FP) ONE (00:14)
[2020-07-08] MEDS ORDERED: ONDANSETRON 4 MG/2 ML VIAL ONE (00:15)
[2020-07-08 00:30] LABS: BASO % 0.7 % (0-2.0); EOS % 0.5 % (0-4.5); HEMATOCRIT 38.2 % (32.4-45.2); LYMPH % 16.8 % (8-40); MCH 29.3 pg (25.7-33.7); MEAN CELL VOLUME 86.1 fl (80-96); MEAN PLT VOLUME 8.2 fl (7.5-11.1); PLATELET COUNT 288 K/MM3 (134-434); RBC 4.43 M/mm3 (3.60-5.2); RDW 13.2 % (11.6-15.6); WHITE BLOOD COUNT 12.7 K/mm3 (4.0-10.0)
[2020-07-08 00:50] LABS: POTASSIUM 4.1 mmol/L (3.5-5.1)
[2020-07-08 00:52] LABS: CALCIUM 8.7 mg/dL (8.5-10.1)
[2020-07-08 00:53] LABS: ALBUMIN 4.4 g/dl (3.4-5.0); BLOOD UREA NITROGEN 12.6 mg/dL (7-18)
[2020-07-08 00:56] LABS: CREATININE 0.7 mg/dL (0.55-1.3)
[2020-07-08 00:58] LABS: BILIRUBIN,TOTAL 0.2 mg/dL (0.2-1); TOT PROT 7.5 g/dl (6.4-8.2)
[2020-07-08 01:37] LABS: EPI CELLS 3 /uL (0-25.1); HCG,QUALITATIVE URINE Negative; HYALINE CASTS 0 /uL (0-3.1); PH,URINE 6.5 (5.0-8.0); URINE APPEARANCE CLEAR; URINE BACTERIA 14 /uL (0-1359); URINE BILIRUBIN NEGATIVE (NEGATIVE); URINE COLOR YELLOW; URINE GLUCOSE (UA) NEGATIVE (NEGATIVE); URINE KETONE NEGATIVE (NEGATIVE); URINE LEUK ESTERASE NEGATIVE (NEGATIVE); URINE NITRITE NEGATIVE (NEGATIVE); URINE PROTEIN NEGATIVE (NEGATIVE); URINE RBC 33 /uL (0-23.9); URINE UROBILINOGEN 0.2 mg/dL (0.2-1.0); URINE WBC 1 /uL (0-25.8)
[2020-07-08] MEDS ORDERED: KETOROLAC TROMETHAMINE 30 MG/1 ML VIAL IVPUSH ONE (04:18)
[2020-07-08] MEDS ORDERED: KETOROLAC TROMETHAMINE 30 MG/1 ML VIAL ONE (04:29)
[2020-07-08 04:38] VITALS: BP 129/86; PULSE 65; TEMP 98.7
== END 2020-07-08 04:38 | disposition home or self-care (01) ==
LOC: JER 22:27
PROC: 3E033NZ Introduction of Analgesics, Hypnotics, Sedatives into Peripheral Vein, Percutaneous Approach (ICD-10-PCS; principal; 2020-07-08)
PROC: 3E0337Z Introduction of Electrolytic and Water Balance Substance into Peripheral Vein, Percutaneous Approach (ICD-10-PCS; 2020-07-08)
PROC: 3E0333Z Introduction of Anti-inflammatory into Peripheral Vein, Percutaneous Approach (ICD-10-PCS; 2020-07-08)
DX: N83.202 Unspecified ovarian cyst, left side (principal)
CPT/HCPCS: 36415; 74176-TC; 76830-TC; 80053; 81003; 84703; 85025; 87086; 99285-25